=== PATIENT | female | born 1995 | race Caucasian/White ===

== ENCOUNTER 2017-08-17 10:18 | Emergency (ER) | payer OTHER, MEDICAID ==
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
[2017-08-17] MEDS ORDERED: FLUoxetine 20 MG Cap ONE ×2 (11:42→12:00)
[2017-08-17] MEDS ORDERED: Ondansetron 4 MG Tab.DIS ONE (11:47)
[2017-08-17] MEDS ORDERED: LORazepam 0.5 MG Tab ONE ×2 (11:48→12:00)
== END 2017-08-17 12:55 | disposition home or self-care (01) ==
LOC: LB.ED 10:18
DX: R56.9 Unspecified convulsions (principal); Z79.899 Other long term (current) drug therapy
CPT/HCPCS: 36415; 80053; 80307; 81001; 83735; 84100; 84703; 85025; 93005; 99285; A9270